=== PATIENT | female | born 1995 | race Caucasian/White ===

== ENCOUNTER 2017-08-03 14:33 | Outpatient (CLI) | payer OTHER ==
[2017-08-03] VITALS (8 sets, daily range): BP systolic 103–124; BP diastolic 53–70
[~2017-08-03] VITALS: Ht 162.6 cm; Wt 116.0 kg
[~2017-08-03 14:33] MED LIST: BENTYL10 MG PO; MOTRIN800 MG PO; ZOFRAN ODT8 MG PO
[2017-08-03 14:59] LABS: BASOPHIL (%) 0.2 % (0-1); EOSINOPHIL (%) 0.6 % (0-5); EOSINOPHIL COUNT 0.1 K/uL (0-0.3); HEMATOCRIT 33.2 % (36.0-46.0); HEMOGLOBIN 10.8 G/DL (11.9-15.5); LYMPHOCYTE (%) 15.6 % (15-42); LYMPHOCYTE COUNT 1.7 K/uL (1.0-2.8); MCH 25.7 PG (29.0-34.0); MCHC 32.5 G/DL (30.0-36.0); MCV 78.9 FL (83-99); MONOCYTE (%) 6.9 % (3-12); MONOCYTE COUNT 0.8 K/uL (0-0.8); NEUTROPHIL (%) 75.7 % (45-76); NEUTROPHIL COUNT 8.2 K/uL (1.8-6.4); PLATELET COUNT 184 K/uL (156-360); RBC DIS.WIDTH-CV 14.6 % (11.8-14.6); RBC DIS.WIDTH-SD 41.4 % (39-53); RED BLOOD COUNT 4.21 M/uL (3.80-5.20); WHITE BLOOD COUNT 10.8 K/uL (4.1-10.2)
[2017-08-03 15:13] LABS: ALBUMIN 3.4 G/DL (3.2-4.8); CHLORIDE 105 MEQ/L (99-109); POTASSIUM 3.8 MEQ/L (3.7-5.4); SODIUM 136 MEQ/L (136-147); TOTAL BILIRUBIN 0.3 MG/DL (0.0-1.0)
[2017-08-03 15:19] LABS: ALKALINE PHOSPHATASE 128 IU/L (3-129); ALT (GPT) 12 IU/L (3-49); AST (GOT) 15 IU/L (2-34); CREATININE 0.5 MG/DL (0.6-1.3); GFR ESTIMATE (CALCULATED) > 59 mL/min/; GLUCOSE 84 mg/dL (70-99); TOTAL PROTEIN 5.9 G/DL (6.4-8.3); UREA NITROGEN (BUN) 6 mg/dL (9-23)
[2017-08-03 16:15] LABS: UR CREATININE CONCENTRATION 100.7 MG/DL
== END 2017-08-03 17:20 | disposition home or self-care (01) ==
LOC: LDRP-OP 14:33 → 2WEST 14:34 → LDRP-OP 10-04 08:39
PROVIDERS: Midwife
DX: O26.899 Other specified pregnancy related conditions, unspecified trimester (principal); R03.0 Elevated blood-pressure reading, without diagnosis of hypertension; Z3A.00 Weeks of gestation of pregnancy not specified
CPT/HCPCS: 59025; 80053; 82570; 84156; 84550; 85025; G0378

== ENCOUNTER 2017-08-28 06:30 | Inpatient (IN) | payer OTHER ==
[2017-08-28] VITALS (25 sets, daily range): BP systolic 87–150; BP diastolic 55–78
[~2017-08-28] VITALS: Ht 162.6 cm; Wt 118.7 kg
[2017-08-28] MEDS ORDERED: CLARITIN,ALAVAR10 MG PO (07:19)
[2017-08-28] MEDS ORDERED: PULMICORT FLE180 MCG IH (07:23)
[2017-08-28] MEDS ORDERED: WOMEN MULTIVIT1 EACH PO (07:24)
[2017-08-28 08:39] LABS: BASOPHIL (%) 0.3 % (0-1); EOSINOPHIL (%) 0.8 % (0-5); EOSINOPHIL COUNT 0.1 K/uL (0-0.3); HEMATOCRIT 31.3 % (36.0-46.0); HEMOGLOBIN 10.1 G/DL (11.9-15.5); IMMATURE GRANULOCYTE (%) 0.9 % (0.0-0.7); LYMPHOCYTE COUNT 1.5 K/uL (1.0-2.8); MCH 25.2 PG (29.0-34.0); MCHC 32.3 G/DL (30.0-36.0); MCV 78.1 FL (83-99); MONOCYTE (%) 8.9 % (3-12); MONOCYTE COUNT 0.9 K/uL (0-0.8); NEUTROPHIL (%) 73.1 % (45-76); NEUTROPHIL COUNT 6.9 K/uL (1.8-6.4); PLATELET COUNT 179 K/uL (156-360); RBC DIS.WIDTH-CV 15.7 % (11.8-14.6); RBC DIS.WIDTH-SD 43.1 % (39-53); RED BLOOD COUNT 4.01 M/uL (3.80-5.20); WHITE BLOOD COUNT 9.5 K/uL (4.1-10.2)
[2017-08-28 10:58] LABS: AMPHETAMINE NEGATIVE (500 ng/mL); BARBITURATES NEGATIVE (200 ng/mL); BENZODIAZEPINES NEGATIVE (150 ng/mL); BUPRENORPHINE NEGATIVE (10 ng/mL); COCAINE NEGATIVE (150 ng/mL); METHADONE NEGATIVE (200 ng/mL); METHAMPHETAMINE NEGATIVE (500 ng/mL); OPIATES (MORPHINE) NEGATIVE (100 ng/mL); OXYCODONE NEGATIVE (100 ng/mL); PHENCYCLIDINE NEGATIVE (25 ng/mL); PROPOXYPHENE NEGATIVE (300 ng/mL); THC CANNABINOIDS NEGATIVE (50 ng/mL); TRICYCLIC ANTIDEPRESSANTS NEGATIVE (300 ng/mL)
[2017-08-28] MEDS ORDERED: IBUPROFEN800 MG PO (23:59)
[2017-08-29] VITALS: BP 113/64
[2017-08-29 01:01] VITALS: BP 141/62
[2017-08-29 02:00] VITALS: BP 130/65
[2017-08-29 03:21] VITALS: BP 121/72
[2017-08-29 06:59] VITALS: BP 124/65
[2017-08-29 15:22] VITALS: BP 130/69
[2017-08-30 07:09] VITALS: BP 131/80
== END 2017-08-30 15:30 | disposition home or self-care (01) | DRG 775 ==
LOC: LDRP-OP → 2WEST 06:31 → LDRP-OP 22:43 → 2WEST 23:03 → LDRP-OP 10-04 18:09
PROVIDERS: Obstetrics & Gynecology
PROC: 3E0R3BZ Introduction of Anesthetic Agent into Spinal Canal, Percutaneous Approach (ICD-10-PCS; principal; 2017-08-28)
PROC: 00HU33Z Insertion of Infusion Device into Spinal Canal, Percutaneous Approach (ICD-10-PCS; principal; 2017-08-28)
PROC: 0KQM0ZZ Repair Perineum Muscle, Open Approach (ICD-10-PCS; principal; 2017-08-28)
PROC: 3E033VJ Introduction of Other Hormone into Peripheral Vein, Percutaneous Approach (ICD-10-PCS; principal; 2017-08-28)
PROC: 10E0XZZ Delivery of Products of Conception, External Approach (ICD-10-PCS; principal; 2017-08-28)
PROC: 10907ZC Drainage of Amniotic Fluid, Therapeutic from Products of Conception, Via Natural or Artificial Opening (ICD-10-PCS; principal; 2017-08-28)
DX: O14.94 Unspecified pre-eclampsia, complicating childbirth (principal); O70.1 Second degree perineal laceration during delivery; O99.824 Streptococcus B carrier state complicating childbirth; O99.214 Obesity complicating childbirth; E66.9 Obesity, unspecified; Z68.41 Body mass index [BMI] 40.0-44.9, adult; O99.52 Diseases of the respiratory system complicating childbirth; J45.909 Unspecified asthma, uncomplicated; Z3A.39 39 weeks gestation of pregnancy; Z37.0 Single live birth; Z87.440 Personal history of urinary (tract) infections
CPT/HCPCS: 85025; C1755; J2540; J3010; J7120

== ENCOUNTER 2017-09-02 21:03 | Emergency (ER) | payer OTHER ==
[~2017-09-02] VITALS: Ht 162.6 cm; Wt 118.6 kg
[~2017-09-02 21:03] MED LIST changes: +CLARITIN,ALAVAR10 MG PO; +IBUPROFEN800 MG PO; +PULMICORT FLE180 MCG IH; +WOMEN MULTIVIT1 EACH PO
[2017-09-02 21:46] LABS: HEMATOCRIT 27.8 % (36.0-46.0); MCH 26.1 PG (29.0-34.0); MCHC 32.4 G/DL (30.0-36.0); MCV 80.6 FL (83-99); PLATELET COUNT 218 K/uL (156-360); RBC DIS.WIDTH-CV 15.8 % (11.8-14.6); RBC DIS.WIDTH-SD 45.1 % (39-53); RED BLOOD COUNT 3.45 M/uL (3.80-5.20); WHITE BLOOD COUNT 8.3 K/uL (4.1-10.2)
[2017-09-02 21:54] LABS: ALBUMIN 3.3 g/dL (3.2-4.8); CHLORIDE 108 mEq/L (99-109); POTASSIUM 3.9 mEq/L (3.7-5.4); SODIUM 142 mEq/L (136-147)
[2017-09-02 21:56] LABS: GLUCOSE 99 mg/dL (70-99)
[2017-09-02 21:57] LABS: TOTAL PROTEIN 6.1 g/dL (6.4-8.3)
[2017-09-02 21:58] LABS: TOTAL BILIRUBIN 0.2 mg/dL (0.0-1.0)
[2017-09-02 22:00] LABS: ALKALINE PHOSPHATASE 132 IU/L (3-129); CREATININE 0.7 mg/dL (0.6-1.3); GFR ESTIMATE (CALCULATED) > 59 mL/min/
[2017-09-02 22:01] LABS: UREA NITROGEN (BUN) 10 mg/dL (9-23)
[2017-09-02 22:02] LABS: AST (GOT) 31 IU/L (2-34)
[2017-09-02 22:03] LABS: ALT (GPT) 50 IU/L (3-49); LIPASE 45 U/L (1.0-51.0)
[2017-09-02 22:14] LABS: QUANTITATIVE HCG 78.6 MIU/ML
[2017-09-02 22:22] LABS: APPEARANCE CLEAR ((CLEAR)); BILIRUBIN NEGATIVE; BLOOD LARGE; COLOR YELLOW ((YELLOW)); GLUCOSE (STRIP) NEGATIVE; KETONES NEGATIVE; LEUKOCYTES MODERATE; NITRITE NEGATIVE; PROTEIN (STRIP) NEGATIVE; SPECIFIC GRAVITY 1.004 (1.000-1.030); UROBILINOGEN 0.2 MG/DL (0.2-1.0)
[2017-09-02 22:26] LABS: BACTERIA RARE /HPF; EPITHELIAL CELLS RARE /HPF; MUCUS NONE SEEN /LPF; RED BLOOD CELLS 0-5 /HPF (0-5); UCUL ADDED? YES
[2017-09-02] MEDS ORDERED: CIPRO500 MG PO (22:43)
[2017-09-02 22:54] VITALS: BP 126/83
== END 2017-09-02 22:56 | disposition home or self-care (01) ==
LOC: EME 21:03
DX: O86.21 Infection of kidney following delivery (principal); N12 Tubulo-interstitial nephritis, not specified as acute or chronic; J45.909 Unspecified asthma, uncomplicated; Z87.440 Personal history of urinary (tract) infections
CPT/HCPCS: 80053; 81003; 83690; 84702; 85027; 87086; 99281; 99284